=== PATIENT | female | born 1950 | race Caucasian/White ===

== ENCOUNTER 2019-09-14 16:18 | Emergency (ER) | payer MEDICARE, SELFPAY ==
--- NOTE | 2019-09-14 16:37 | ED_ITS ---
HPI - Abdominal Pain General Chief Complaint: Recheck/Abnormal Lab/Rx Stated Complaint: ELEVATED BP Time Seen by Provider: 09/14/19 16:20 Source: patient Mode of arrival: ambulatory Limitations: no limitations History of Present Illness HPI narrative: Patient is a 69-year-old female who presents to emergency department from gynecology for having had elevated blood pressure readings. Patient notes that she has a history of blood pressure but has not been on blood pressure medicine in 7 years. Patient notes she does not currently have a primary care doctor and is in the process of getting one. Patient has no symptoms denies any complaints. Patient on arrival with family in the room in no distress resting comfortably. Related Data Allergies Allergy/AdvReac Type Severity Reaction Status Date / Time codeine Allergy Intermediate Vomiting Verified 09/14/19 16:51 Review of Systems Review of Systems: All systems reviewed & are unremarkable except as noted in HPI and below PMFSH Social History Social History Smoking status: Never smoker Exam Narrative: Exam Narrative: GENERAL: Well-appearing, well-nourished, and in no acute distress. HEAD: Normocephalic, atraumatic. EYES: PERRLA and EOMI. ENT: Nares clear, no rhinorrhea or epistaxis. Mucous membranes moist. CHEST: Clear to auscultation. No respiratory distress. No wheezes rales or rhonchi HEART: Regular rate and rhythm. No murmur heard. EXTREMITIES: Normal range of motion. No edema. SKIN: Warm, dry, no rash. NEURO: No focal deficits. Alert and oriented x3. Cranial nerves II through XII grossly intact PSYCH: Normal mood and affect. Course Course Emergency Course: Patient in the room at this time in no distress aware of case findings treatment plan and diagnosis agreeing to follow-up as directed or to return if symptoms worsen or concerns MDM - Abdominal Pain MDM Narrative Medical decision making narrative: Patient in the room at this time in no distress aware of case findings treatment plan and diagnosis agreeing to follow- up as directed or to return if symptoms worsen or concerns. Patient is asymptomatic and in no distress felt appropriate for outpatient reevaluation advised to continue with plan to follow with primary care. Patient provided with reasons to return Discharge Plan Discharge Clinical Impression: Hypertension Patient Disposition: Home, Self-Care Condition: Stable Instructions: Antibiotic Form, Hypertension (ED) Additional Instructions: Follow up with your primary care doctor in 5-7 days for re-evaluation. Go to ER for worsening pain, vision changes, nausea/vomiting, fever/chills, weakness, chest pain, shortness of breath, numbness/tingling, slurred speech, difficulty walking, change in mental status etc. or any other concerns. Take any prescribed medications as directed. Prescriptions: New hydrochlorothiazide 12.5 mg capsule 12.5 mg PO DAILY Qty: 30 RF: 0 Follow-up/Referrals: PHYSICIAN,[employer]HOU[employer]ICIAN [Primary Care Provider] - Edward Cavazos MD [Physician] -
[2019-09-14 16:46] VITALS: BP 183/87; PULSE 101; RESP 98; TEMP 37.6; O2SAT 99
[2019-09-14 17:03] LABS: Basophils Absolute Auto 0.1 K/mm3 (0.0-0.1); Basophils Percent Auto 0.9 % (0.2-1.2); Eosinophils Percent Auto 0.1 % (0-4.4); Hemoglobin 14.9 g/dL (12.0-15.0); Immature Granulocyte Absolute 0.02 K/mm3 (0.00-0.031); Immature Granulocyte Percent A 0.3 % (0-0.5); Lymphocytes Absolute Auto 1.72 K/mm3 (0.9-3.2); Lymphocytes Percent Auto 25.6 % (18.3-44.2); Mean Corpuscular HGB Conc 33.1 g/dl (32-36); Mean Corpuscular Hemoglobin 29.7 pg (26-34); Mean Corpuscular Volume 89.6 fl (80-100); Mean Platelet Volume 9.2 fl (7.4-10.4); Monocytes Absolute Auto 0.7 K/mm3 (0.1-0.6); Monocytes Percent Auto 9.7 % (2.6-8.5); Neutrophils Absolute Auto 4.3 K/mm3 (1.3-6.7); Neutrophils Percent Auto 63.4 % (45.5-73.1); Platelet Count Result 283 k/mm3 (150-375); Red Blood Count 5.02 M/mm3 (4.2-5.4); Red Cell Distribution Width 13.2 % (11.5-14.5); White Blood Count 6.7 K/mm3 (4.5-10.0)
[2019-09-14 17:14] LABS: Alanine Aminotransferase 16 U/L (4-35); Albumin Level 4.6 g/dL (3.5-5.1); Alkaline Phosphatase 84 U/L (38-126); Aspartate Amino Transferase 24 U/L (14-36); Bilirubin,Total 0.7 mg/dL (0.2-1.3); Blood Urea Nitrogen 11 mg/dL (7-17); Calcium 9.2 mg/dL (8.4-10.2); Carbon Dioxide 28 mmol/L (22-30); Chloride 105 mmol/L (98-107); Estimated CRCL calculation 55 ml/min; Estimated Glomerular Filt Rate > 60; Glucose 107 mg/dL (65-105); Potassium 3.8 mmol/L (3.4-5.0); Sodium 139 mmol/L (137-145)
[2019-09-14 17:31] VITALS: BP 172/100; PULSE 95; RESP 16; O2SAT 98
[2019-09-14] MEDS: CLONIDINE HCL 0.1 MG TABLET PO (17:32)
[2019-09-14 18:04] VITALS: BP 174/98; PULSE 95; RESP 17; O2SAT 99
[2019-09-14 18:22] VITALS: BP 154/92; PULSE 85; RESP 16; O2SAT 98
== END 2019-09-14 18:23 | disposition home or self-care (01) ==
PROVIDERS: Emergency Medicine Emergency Medical Services; Emergency Provider Emergency Medicine
DX: I10 Essential (primary) hypertension (principal)
CPT/HCPCS: 36415; 80053; 85025; 99283; A9270

== ENCOUNTER 2024-02-03 13:43 | Emergency (ER) | payer MEDICARE, SELFPAY ==
[2024-02-03 13:50] VITALS: BP 197/118; PULSE 127; RESP 16; TEMP 36.4; O2SAT 100
--- NOTE | 2024-02-03 13:53 | ECG_ITS ---
Test Date: 2024-02-03 13:57:46 Measurements Intervals Gantt Rate: 116 P: 45 KS: 128 QRS: 53 QRSD: 83 T: 15 QT: 304 QTc: 422 Interpretive Statements SINUS TACHYCARDIA POSSIBLE LEFT ATRIAL ENLARGEMENT [-0.1mV P WAVE IN V1/V2] MINIMAL ST DEPRESSION [0.025+ mV ST DEPRESSION] ABNORMAL RHYTHM ECG No previous ECG available for comparison Electronically Signed On 02-03-2024 14:26:14 CDT by Lang Quinonez M.D.
[2024-02-03 14:08] VITALS: BP 184/105; PULSE 127; RESP 16; O2SAT 100
[2024-02-03 14:16] VITALS: BP 176/96; PULSE 120; RESP 12; O2SAT 99
[2024-02-03 14:21] LABS: Basophils Absolute Auto 0.1 K/mm3 (0.0-0.1); Eosinophils Absolute Auto 0.1 K/mm3 (0-0.3); Eosinophils Percent Auto 0.7 % (0-4.4); Hematocrit 49.7 % (37.0-47.0); Hemoglobin 16.2 g/dL (12.0-15.0); Immature Granulocyte Absolute 0.02 K/mm3 (0.00-0.031); Immature Granulocyte Percent A 0.3 % (0-0.5); Lymphocytes Absolute Auto 2.11 K/mm3 (0.9-3.2); Lymphocytes Percent Auto 27.4 % (18.3-44.2); Mean Corpuscular HGB Conc 32.6 g/dl (32-36); Mean Corpuscular Volume 89.1 fl (80-100); Mean Platelet Volume 9.2 fl (7.4-10.4); Monocytes Absolute Auto 0.6 K/mm3 (0.1-0.6); Monocytes Percent Auto 8.1 % (2.6-8.5); Neutrophils Absolute Auto 4.8 K/mm3 (1.3-6.7); Neutrophils Percent Auto 62.5 % (45.5-73.1); Platelet Count Result 324 k/mm3 (150-375); Red Blood Count 5.58 M/mm3 (4.2-5.4); Red Cell Distribution Width 13.2 % (11.5-14.5); White Blood Count 7.7 K/mm3 (4.5-10.0)
[2024-02-03 14:31] VITALS: BP 169/91; PULSE 114; RESP 15; O2SAT 99
[2024-02-03 14:44] LABS: Prothrombin Time 13.3 Seconds (11.1-14.7)
[2024-02-03 14:45] LABS: Partial Thromboplastin Time 31.7 Seconds (22.3-36.8)
[2024-02-03 15:04] LABS: Alanine Aminotransferase 26 U/L (6-35); Albumin Level 4.9 g/dL (3.5-5.1); Alkaline Phosphatase 90 U/L (38-126); Anion Gap 9 mmol/L (4-12); Aspartate Amino Transferase 30 U/L (14-36); Bilirubin,Total 0.9 mg/dL (0.2-1.3); Blood Urea Nitrogen 12 mg/dL (7-17); Calcium 10.3 mg/dL (8.4-10.2); Carbon Dioxide 29 mmol/L (22-30); Chloride 104 mmol/L (98-107); Estimated CRCL calculation 52 ml/min; Estimated Glomerular Filt Rate > 60; Glucose 127 mg/dL (65-110); Magnesium 1.9 mg/dL (1.6-2.3); Potassium 3.7 mmol/L (3.4-5.0); Sodium 142 mmol/L (137-145)
--- NOTE | 2024-02-03 15:37 | ED.GENADULT ---
HPI - General Adult General Chief complaint: Recheck/Abnormal Lab/Rx Stated complaint: HTN Time Seen by Provider: 02/03/24 15:21 Source: patient Mode of arrival: ambulatory Limitations: no limitations History of Present Illness HPI narrative: 73-year-old with a history of hypertension on lisinopril 20 mg presents to the ER with a complaint of elevated blood pressure. Patient states that she usually runs low and she stopped taking her blood pressure medication however today she was at the doctor's office and was found to be high. Patient did state that she checks her blood pressure every day and it is usually in the her in normal range. Her daughter was at bedside states that she had upset informed call this morning and that might have increased her blood pressure. She presently has no headache or chest pain or blurred vision. Onset (ago): day(s) (1) Associated symptoms: denies other symptoms Related Data Home Medications Medication Instructions Recorded Confirmed lisinopril 20 mg tablet 20 mg PO DAILY 02/21/20 11/04/23 ascorbic acid (vitamin C) 1,000 mg 1 g PO DAILY 04/09/21 11/04/23 tablet cholecalciferol (vitamin D3) 50 50 mcg PO DAILY 04/09/21 11/04/23 mcg (2,000 unit) capsule cyanocobalamin (vitamin B-12) 3,000 mcg PO DAILY 04/09/21 11/04/23 3,000 mcg capsule zinc PO 04/09/21 11/04/23 Allergies Allergy/AdvReac Type Severity Reaction Status Date / Time codeine Allergy Intermediate Vomiting Verified 02/03/24 13:00 Review of Systems Review of Systems: All systems reviewed & are unremarkable except as noted in HPI and below Constitutional: Constitutional: Reports no additional constitutional complaints Eyes: Eyes: Reports no additional eye complaints Cardiovascular: Cardiovascular: Reports no additional cardiovascular complaints Respiratory: Respiratory: Reports no additional respiratory complaints Gastrointestinal: Gastrointestinal: Reports no additional gastrointestinal complaints Musculoskeletal: Musculoskeletal: Reports no additional musculoskeletal complaints Neurologic: Reports system reviewed and no additional complaints, except as documented PMFSH Past Medical History Medical History Cystocele Hypertension Vaginal delivery x3 Surgical History Surgical History History of cryosurgery History of eye surgery 05/18/20 rt eye 08/26 lft eye Family History Family History Sibling Cerebrovascular accident Mother Cerebrovascular accident Father Cerebrovascular accident Social History Social History Smoking status: Never smoker Alcohol intake: never Substance use: never Lack of Transportation: No Lack of Food: Never True Current Housing: I Have Housing Concerned About Future Housing: No Difficulty Paying Gas/Electric Bills: No Difficulty Paying for Meds: No Currently Unemployed: No Education: High School Diploma/GED Difficulty w/ Childcare or Family Care: No Living arrangements: alone Occupation/Education: retired Gender identity (if verbalized by the patient): Female Sexual Orientation (if Verbalized by the Patient): Straight or Heterosexual Spiritual care concerns: No Exam Narrative: GENERAL: Well-appearing, well-nourished, and in no acute distress. HEAD: Normocephalic, atraumatic. EYES: PERRLA and EOMI. ENT: Mucous membranes moist. NECK: Supple. CHEST: Clear to auscultation. No respiratory distress. HEART: Regular rate and rhythm. No murmur heard. Normal peripheral pulses. ABDOMEN: Soft, nontender, nondistended, normal active bowel sounds. EXTREMITIES: Normal range of motion. No edema. SKIN: Warm, dry, no rash. NEURO: No focal deficits. Alert and oriented x3. PSYCH: Normal mood and affect. Course Course Emergency Course: Patient comfortably resting on bed in no discomfort. I did inform her about her lab work, EKG findings recommended her to continue lisinopril but at a lower dose. Also advised to follow with his primary doctor Vital Signs Vital signs: Vital Signs Temperature 36.4 C 02/03/24 13:50 Pulse Rate 127 H 02/03/24 13:50 Respiratory Rate 16 02/03/24 13:50 Blood Pressure 197/118 H 02/03/24 13:50 Pulse Oximetry 100 02/03/24 13:50 Oxygen Delivery Room Air 02/03/24 13:50 Temperature 36.4 C 02/03/24 13:50 Pulse Rate 114 H 02/03/24 14:31 Respiratory Rate 15 02/03/24 14:31 Blood Pressure 169/91 H 02/03/24 14:31 Pulse Oximetry 99 02/03/24 14:31 Oxygen Delivery Room Air 02/03/24 14:08 Medical Decision Making MDM Narrative Medical decision making narrative: 73-year-old with a history of hypertension you with the complaints of having high blood pressure at the doctor's office. Patient on exam is unremarkable. will do labs and EKG . Vital Signs Vital Signs: Vital Signs Temperature 36.4 C 02/03/24 13:50 Pulse Rate 127 H 02/03/24 13:50 Respiratory Rate 16 02/03/24 13:50 Blood Pressure 197/118 H 02/03/24 13:50 Pulse Oximetry 100 02/03/24 13:50 Oxygen Delivery Room Air 02/03/24 13:50 Temperature 36.4 C 02/03/24 13:50 Pulse Rate 114 H 02/03/24 14:31 Respiratory Rate 15 02/03/24 14:31 Blood Pressure 169/91 H 02/03/24 14:31 Pulse Oximetry 99 02/03/24 14:31 Oxygen Delivery Room Air 02/03/24 14:08 Lab Data 02/03/24 14:12 02/03/24 14:12 Labs: Lab Results 02/03/24 Range/Units 14:12 WBC 7.7 (4.5-10.0) K/mm3 RBC 5.58 H (4.2-5.4) M/mm3 Hgb 16.2 H (12.0-15.0) g/dL Hct 49.7 H (37.0-47.0) % MCV 89.1 (80-100) fl MCH 29.0 (26-34) pg MCHC 32.6 (32-36) g/dl RDW 13.2 (11.5-14.5) % Plt Count 324 (150-375) k/mm3 MPV 9.2 (7.4-10.4) fl Immature Gran % (Auto) 0.3 (0-0.5) % Neut % (Auto) 62.5 (45.5-73.1) % Lymph % (Auto) 27.4 (18.3-44.2) % Mclean % (Auto) 8.1 (2.6-8.5) % Eos % (Auto) 0.7 (0-4.4) % Baso % (Auto) 1.0 (0.2-1.2) % Lymph # (Auto) 2.11 (0.9-3.2) K/mm3 Mclean # (Auto) 0.6 (0.1-0.6) K/mm3 Eos # (Auto) 0.1 (0-0.3) K/mm3 Baso # (Auto) 0.1 (0.0-0.1) K/mm3 Abs Immat Gran (auto) 0.02 (0.00-0.031) K/mm3 Absolute Neuts (auto) 4.8 (1.3-6.7) K/mm3 Absolute Nucleated RBC 0.000 (0.0-0.012) K/mm3 Nucleated RBC % 0.0 (0.0-0.2) % PT 13.3 (11.1-14.7) Seconds INR 1.0 APTT 31.7 (22.3-36.8) Seconds Sodium 142 (137-145) mmol/L Potassium 3.7 (3.4-5.0) mmol/L Chloride 104 (98-107) mmol/L Carbon Dioxide 29 (22-30) mmol/L Anion Gap 9 (4-12) mmol/L BUN 12 (7-17) mg/dL Creatinine 0.70 (0.7-1.0) mg/dL Estim Creat Clear Calc 52 ml/min Estimated GFR > 60 (59 - ) Glucose 127 H (65-110) mg/dL Calcium 10.3 H (8.4-10.2) mg/dL Magnesium 1.9 (1.6-2.3) mg/dL Total Bilirubin 0.9 (0.2-1.3) mg/dL AST 30 (14-36) U/L ALT 26 (6-35) U/L Alkaline Phosphatase 90 (38-126) U/L Troponin I Pending Total Protein 9.0 H (6.3-8.2) g/dL Albumin 4.9 (3.5-5.1) g/dL ECG Data EKG #1: ECG completion date: 02/03/24 ECG completion time: 13:57 EKG Interpretation: tachycardia (116), no ectopy, no ST changes and NL axis Discharge Plan Discharge Clinical Impression: Hypertension Patient Disposition: Home, Self-Care Condition: Stable Instructions: Hypertension (ED) Additional Instructions: You can continue home meds ,follow with your doctor , if you are unable to tolerate 20 mgs of Lisinopril can take 10 mg instead , follow with your Primary doctor as scheduled. Prescriptions: No Action lisinopril 20 mg tablet 20 mg PO DAILY ascorbic acid (vitamin C) 1,000 mg tablet 1 g PO DAILY zinc PO Patient Comments: dose unknown cholecalciferol (vitamin D3) 50 mcg (2,000 unit) capsule 50 mcg PO DAILY Patient Comments: dose unknown cyanocobalamin (vitamin B-12) 3,000 mcg capsule 3,000 mcg PO DAILY Patient Comments: dose unknown Trimo-[place] Jelly 0.025-0.01 % gel See Rx Instructions vaginal .COMPLEX Qty: 113.4 0RF Rx Instructions: insert applicatorful once a week vaginally; Follow-up/Referrals: Cara,Jay Bloom MD [Primary Care Provider] -
[2024-02-03 15:40] LABS: Troponin I < 0.012 ng/mL (0.000-0.034)
[2024-02-03 16:19] VITALS: BP 144/87; PULSE 82; RESP 14; TEMP 36.7; O2SAT 100
== END 2024-02-03 16:19 | disposition home or self-care (01) ==
LOC: ANHED 15:53
PROVIDERS: Registered Nurse; Emergency Provider Family Medicine; PCP Family Medicine
DX: I10 Essential (primary) hypertension (principal); T46.4X6A Underdosing of angiotensin-converting-enzyme inhibitors, initial encounter; Z91.128 Patient's intentional underdosing of medication regimen for other reason; R00.0 Tachycardia, unspecified; R94.31 Abnormal electrocardiogram [ECG] [EKG]
CPT/HCPCS: 36415; 80053; 83735; 84484; 85025; 85610; 85730; 93005; 99284